=== PATIENT | female | born 1995 | race Two or more races ===

== ENCOUNTER 2022-03-08 11:02 | Emergency (ER) | payer MEDICAID, OTHER ==
[~2022-03-08] VITALS: Ht 162.6 cm; Wt 85.8 kg
[2022-03-08 11:50] VITALS: BP 122/71
[2022-03-08] MEDS ORDERED: ONDANSETRON HCL 4 MG/2 ML VIAL IV ONE (13:15)
[2022-03-08] MEDS ORDERED: KETOROLAC TROMETH 30 MG/ML 1ML VIAL IV ONE (13:15)
[2022-03-08] MEDS ORDERED: SODIUM CHLORIDE 0.9% 1,000 ML IVB ONE (13:15)
[2022-03-08 13:26] LABS: Urine Bacteria FEW /hpf (None Seen); Urine Blood 2+ /uL (Negative); Urine Mucus FEW (None Seen); Urine Specific Gravity 1.027 (1.001-1.035); Urine WBC 3 /hpf (0 - 5)
[2022-03-08 13:41] LABS: Basophils # (auto) 0 10 ^3/uL (0-0.2); Eosinophils # (auto) 0 10 ^3/uL (0-0.8); Monocytes # (auto) 0.3 10 ^3/uL (0-1.3)
[2022-03-08 13:43] LABS: Basophils % (auto) 0.5 % (0.0-2.0); Eosinophils % (auto) 0.3 % (0.0-7.0); Hemoglobin 13.2 g/dL (12.2-16.2); Lymphocytes # (auto) 2.5 10 ^3/uL (0.4-5.4); Mean Corpuscular Hgb Conc. 33.7 g/dL (32.0-36.0); Neutrophils % (auto) 63.2 % (37.0-80.0); Red Blood Cells 4.88 10^6/uL (4.0-5.20); Red Cell Distribution Width 16.5 % (11.8-14.3); White Blood Cell 7.9 10^3/uL (4.4-10.8)
[2022-03-08 14:04] LABS: Albumin 3.8 g/dL (3.4-5.0); Calcium 8.4 mg/dL (8.5-10.1); Magnesium 2.2 mg/dL (1.6-2.6); Potassium 4.5 mmol/L (3.5-5.1)
[2022-03-08 14:07] LABS: BUN/Creatinine Ratio 11.2; Bilirubin, Total 1.1 mg/dL (0.2-1.0)
[2022-03-08] MEDS ORDERED: AZITHROMYCIN 250 MG TAB PO ONE (15:00)
[2022-03-08] MEDS ORDERED: cefTRIAXone W LIDOCAINE 500 MG IM IM ONE (15:00)
[2022-03-08] MEDS ORDERED: ONDA-144 PO (15:05)
[2022-03-08] MEDS ORDERED: NITR-87 PO (15:07)
== END 2022-03-09 05:03 | disposition home or self-care (01) ==
LOC: ER 11:02
DX: N39.0 Urinary tract infection, site not specified (principal); N83.201 Unspecified ovarian cyst, right side; N89.8 Other specified noninflammatory disorders of vagina; F12.10 Cannabis abuse, uncomplicated; Z32.02 Encounter for pregnancy test, result negative
CPT/HCPCS: 36415; 76856; 80053; 81001; 81025; 83690; 83735; 84702; 85025; 99284; J0696; J7030

== ENCOUNTER 2022-07-04 12:09 | Emergency (ER) | payer MEDICAID ==
[~2022-07-04] VITALS: Ht 160 cm; Wt 98.8 kg
[~2022-07-04 12:09] MED LIST: NITR-87 PO; ONDA-144 PO
[2022-07-04 13:41] VITALS: BP 153/83
[2022-07-04] MEDS ORDERED: KETOROLAC TROMETH 30 MG/ML 1ML VIAL IM ONE (14:45)
[2022-07-04] MEDS ORDERED: ACETAMINOPHEN 500 MG TAB PO ONE (16:15)
[2022-07-04] MEDS ORDERED: IBUP600T28 PO (16:37)
[2022-07-04] MEDS ORDERED: CYCL-839 PO (16:37)
[2022-07-04] MEDS ORDERED: FLUC150T38 PO (16:37)
[2022-07-04] MEDS ORDERED: CEPH-510 PO (16:37)
[2022-07-04 17:57] LABS: Urine Bacteria NONE SEEN /hpf (None Seen); Urine Blood Negative /uL (Negative); Urine Hyaline Cast FEW /lpf (0 - 2); Urine Mucus FEW (None Seen); Urine Specific Gravity 1.028 (1.001-1.035); Urine WBC 2 /hpf (0 - 5)
== END 2022-07-04 16:38 | disposition home or self-care (01) ==
LOC: ER 12:09
DX: S83.91XA Sprain of unspecified site of right knee, initial encounter (principal); S39.012A Strain of muscle, fascia and tendon of lower back, initial encounter; N76.0 Acute vaginitis; F12.90 Cannabis use, unspecified, uncomplicated; V89.2XXA Person injured in unspecified motor-vehicle accident, traffic, initial encounter; Y93.89 Activity, other specified; Y92.89 Other specified places as the place of occurrence of the external cause; Y99.8 Other external cause status
CPT/HCPCS: 72100; 73562; 81001; 96372; 99284; J1885

== ENCOUNTER 2022-09-28 08:14 | Emergency (ER) | payer MEDICAID ==
[~2022-09-28] VITALS: Ht 160 cm; Wt 85.0 kg
[~2022-09-28 08:14] MED LIST changes: +CEPH-510 PO; +CYCL-839 PO; +FLUC150T38 PO; +IBUP1TAB5 PO
[2022-09-28 08:48] VITALS: BP 136/63
[2022-09-28 09:09] LABS: Urine Bacteria NONE SEEN /hpf (None Seen); Urine Blood 2+ /uL (Negative); Urine Mucus FEW (None Seen); Urine Specific Gravity 1.027 (1.001-1.035); Urine WBC 2 /hpf (0 - 5)
[2022-09-28] MEDS ORDERED: AZIT500T66 PO (09:29)
[2022-09-28] MEDS ORDERED: LIDO2SOL26 MT (09:29)
[2022-09-28] MEDS ORDERED: cefTRIAXone SOD 1,000 MG VL IM ONE (09:30)
== END 2022-09-28 09:43 | disposition home or self-care (01) ==
LOC: ER 08:14
DX: J03.90 Acute tonsillitis, unspecified (principal); M79.10 Myalgia, unspecified site; Z32.02 Encounter for pregnancy test, result negative
CPT/HCPCS: 81001; 81025; 96372; 99283; J0696

== ENCOUNTER 2023-02-27 19:11 | Emergency (ER) | payer MEDICAID ==
[~2023-02-27] VITALS: Ht 160 cm; Wt 95.0 kg
[~2023-02-27 19:11] MED LIST changes: +AZIT500T66 PO; +LIDO2SOL26 MT
[2023-02-27 20:30] LABS: Basophils # (auto) 0.1 10 ^3/uL (0-0.2); Basophils % (auto) 0.5 % (0.0-2.0); Eosinophils # (auto) 0.1 10 ^3/uL (0-0.8); Eosinophils % (auto) 0.4 % (0.0-7.0); Hematocrit 41.7 % (36.0-46.0); Hemoglobin 14.1 g/dL (12.2-16.2); Lymphocytes # (auto) 3.6 10 ^3/uL (0.4-5.4); Mean Corpuscular Hemoglobin 29.5 pg (28.0-32.0); Mean Corpuscular Hgb Conc. 33.9 g/dL (32.0-36.0); Monocytes # (auto) 0.9 10 ^3/uL (0-1.3); Monocytes % (auto) 5.9 % (0.0-12.0); Neutrophils # (auto) 9.8 10 ^3/uL (1.6-8.6); Neutrophils % (auto) 68.2 % (37.0-80.0); Red Cell Distribution Width 13.5 % (11.8-14.3); White Blood Cell 14.4 10^3/uL (4.4-10.8)
[2023-02-27 20:43] LABS: Alanine Aminotransferase 14 U/L (7-40); Albumin 4.4 g/dL (3.2-4.8); Alkaline Phosphatase 54 U/L (46-116); Anion Gap 8 (5-15); Aspartate Aminotransferase < 8 U/L (13-40); Bilirubin, Total 0.9 mg/dL (0.2-1.0); Blood Urea Nitrogen 8 mg/dL (9-23); Calcium 9.2 mg/dL (8.5-10.1); Carbon Dioxide 24 mmol/L (20-30); Chloride 109 mmol/L (98-107); Glucose 83 mg/dL (74-106); Potassium 3.8 mmol/L (3.5-5.1); Sodium 141 mmol/L (136-145); Total Protein 7.2 g/dL (5.7-8.2)
[2023-02-27 20:46] LABS: Urine Bacteria FEW /hpf (None Seen); Urine Blood 2+ /uL (Negative); Urine Clarity HAZY (Clear); Urine Color Yellow (Yellow); Urine Mucus MANY (None Seen); Urine Protein, UAD 2+ (Negative); Urine Specific Gravity 1.045 (1.001-1.035); Urine WBC 31 /hpf (0 - 5); Urine pH 5.5 (5.0-8.0)
[2023-02-27] MEDS ORDERED: AZITHROMYCIN 250 MG TAB PO ONE (23:00)
[2023-02-27] MEDS ORDERED: cefTRIAXone SOD 1,000 MG VL IM ONE (23:00)
[2023-02-27] MEDS ORDERED: HYDROcodone-ACET 5/325MG TAB PO ONE (23:00)
[2023-02-27] MEDS ORDERED: CIPR-173 PO (23:11)
[2023-02-27] MEDS ORDERED: METR-344 PO (23:11)
[2023-02-27 23:27] VITALS: BP 108/68; PULSE 85; RESP 17; TEMP 98.4; O2SAT 100
[2023-02-27 23:38] LABS: Vaginal Trichomonas Not Present
[2023-02-27 23:39] LABS: Vaginal Bacteria Few; Vaginal Clue Cells None Seen; Vaginal Epithelial Cells Few
[2023-03-01 07:07] LABS: RPR Non Reactive (Non Reactive)
== END 2023-02-27 23:41 | disposition home or self-care (01) ==
LOC: ER 19:11
DX: N39.0 Urinary tract infection, site not specified (principal); R10.2 Pelvic and perineal pain; N76.0 Acute vaginitis; I10 Essential (primary) hypertension; F41.9 Anxiety disorder, unspecified; F32.9 Major depressive disorder, single episode, unspecified; F15.90 Other stimulant use, unspecified, uncomplicated; Z79.899 Other long term (current) drug therapy
CPT/HCPCS: 36415; 76856; 80053; 81001; 84702; 85025; 86592; 87210; 87491; 87591; 96372; 99285; J0696

== ENCOUNTER 2023-03-10 11:49 | Emergency (ER) | payer MEDICAID ==
[~2023-03-10] VITALS: Ht 160 cm; Wt 94.0 kg
[~2023-03-10 11:49] MED LIST changes: +CIPR-173 PO; +METR-344 PO
[2023-03-10 12:19] VITALS: BP 131/76; PULSE 92; RESP 16; TEMP 97.8; O2SAT 96
[2023-03-10] MEDS ORDERED: KETOROLAC TROMETH 60MG/2ML VIAL IM ONE (12:30)
[2023-03-10 12:33] LABS: Urine Bacteria NONE SEEN /hpf (None Seen); Urine Blood Negative /uL (Negative); Urine Budding Yeast FEW /hpf (None Seen); Urine Clarity HAZY (Clear); Urine Color PINK (Yellow); Urine Mucus FEW (None Seen); Urine Protein, UAD 1+ (Negative); Urine Specific Gravity 1.023 (1.001-1.035); Urine Urobilinogen Normal (Negative); Urine WBC 2 /hpf (0 - 5)
[2023-03-10] MEDS ORDERED: IBUP-1456 PO (13:41)
[2023-03-10] MEDS ORDERED: BACDST PO (13:41)
== END 2023-03-10 13:46 | disposition home or self-care (01) ==
LOC: ER 11:49
DX: N39.0 Urinary tract infection, site not specified (principal); N83.291 Other ovarian cyst, right side; I10 Essential (primary) hypertension; F41.9 Anxiety disorder, unspecified; F32.9 Major depressive disorder, single episode, unspecified; F15.90 Other stimulant use, unspecified, uncomplicated; Z79.899 Other long term (current) drug therapy
CPT/HCPCS: 74176; 81001; 81025; 96372; 99285; J1885

== ENCOUNTER 2024-11-01 12:55 | Emergency (ER) | payer MEDICAID ==
[~2024-11-01] VITALS: Ht 175.3 cm; Wt 90.0 kg
[~2024-11-01 12:55] MED LIST changes: +BACDST PO; +IBUP-1456 PO
[2024-11-01] MEDS ORDERED: METR0.7511 VG (15:34)
--- NOTE | 2024-11-01 15:34 | ED.PDOC ---
History of Present Illness HPI Comments vaginal discharge. pt had bacterial vaginosis, and improved with treatment, but recurred with light white discharge. no odors Chief Complaint: Vaginal Discharge Time Seen by MD: 14:40 Primary Care Provider: NONE Allergies: Coded Allergies: NO KNOWN ALLERGIES (Unverified , 03/08/22) Home Meds Active Scripts Ibuprofen (Ibuprofen) 800 Mg Tab, 1 TAB PO TID, #30 TAB Prov:VINITA TAY 03/10/23 Sulfamethoxazole W/Trimethopri (Bactrim Ds Tablet) 1 Tab Tb, 1 TAB PO BID for 3 Days, #6 TAB Prov:VINITA TAY 03/10/23 Metronidazole (Flagyl) 500 Mg Tab, 1 TAB PO TID for 10 Days, #30 TAB Prov:CATHIE KHAN Q PUBLIC RELATIONS ANALYST 02/27/23 Ciprofloxacin Hcl (Cipro) 500 Mg Tab, 1 TAB PO BID for 10 Days, #20 TAB Prov:KHANMUMTAZALDA Q PUBLIC RELATIONS ANALYST 02/27/23 Lidocaine HCl (Mouth-Throat) (Lidocaine HCl Viscous) 2 % Holly, 2 % MT TID, #100 ML Prov:VINITA TAY 09/28/22 Azithromycin (Azithromycin) 500 Mg Tab, 1 TAB PO DAILY, #5 TAB Prov:VINITA TAY 09/28/22 Cyclobenzaprine Hcl (Cyclobenzaprine Hcl) 10 Mg Tab, 10 MG PO TID, #12 TAB 0 Refills Prov:IVET SERRA ASSOCIATE PRINCIPAL 07/04/22 Ibuprofen Micronized (Ibuprofen) 600 Mg Tab, 600 MG PO Q8HPRN PRN, #30 TAB 0 Refills Prov:IVET SERRA ASSOCIATE PRINCIPAL 07/04/22 Fluconazole (Diflucan) 150 Mg Tab, 1 TAB PO ONCE, #2 TAB Dose: 150 mg p.o. every 72 hours x2 doses Prov:IVET SERRA ASSOCIATE PRINCIPAL 07/04/22 Cephalexin ( Keflex 500) 500 Mg Cap, 1 CAP PO QID for 7 Days, #28 CAP 0 Refills Prov:IVET SERRA ASSOCIATE PRINCIPAL 07/04/22 Nitrofurantoin Monohydrate Mac (Macrobid) 100 Mg Cap, 100 MG PO BID for 5 Days, #10 CAP Prov:JOSIAH ALLEN DO 03/08/22 Ondansetron (Zofran) 4 Mg Tab, 4 MG PO BID PRN for 4 Days, #12 TAB 0 Refills Prov:JOSIAH ALLEN DO 03/08/22 Mode of Arrival: Ambulatory Severity: Mild Timing: Days Duration: Since onset Past Medical History PAST MEDICAL HISTORY: Anxiety, Depression, HTN Past Medical History (Other): baterioal vaginosis Surgical History: Denies all surgeries EXECUTIVE PASTRY CHEF History: No Pertinent EXECUTIVE PASTRY CHEF History Family History Family History: Reviewed,noncontributory to illness Social History Smoker: Non-Smoker Alcohol: Denies ETOH Use Drugs: Marijuana Lives In: Home Constitutional: denies: chills, diaphoresis, fatigue, fever, malaise, sweats, weakness, others Genitourinary: reports: vagina discharge Physical Exam General Appearance: No Apparent Distress, Normal HEENT: Normal ENT Inspection, Pharynx Normal, TMs Normal Neck: Full Range of Motion, Non-Tender, Normal, Normal Inspection Respiratory: Chest Non-Tender, Lungs Clear, No Accessory Muscle Use, No Respiratory Distress, Normal Breath Sounds Cardiovascular: No Edema, No JVD, No Murmur, No Gallop, Normal Peripheral Pulses, Regular Rate/Rhythm Breast Exam: Deferred Gastrointestinal: No Organomegaly, Non Tender, No Pulsatile Mass, Normal Bowel Sounds, Soft Genitalia: Deferred Pelvic: Deferred Rectal: Deferred Extremities: No calf tenderness, Normal capillary refill, Normal inspection, Normal range of motion, Non-tender, No pedal edema Musculoskeletal : Apperance: Normal Neurologic: Alert, foreign exchange position clerk II-XII nml as Tested, No Motor Deficits, Normal Affect, Normal Mood, No Sensory Deficits Cerebellar Function: Normal Reflexes: Normal Skin: Dry, Normal Color, Warm Lymphatic: No Adenopathy Was a procedure done? Was a procedure done?: No Differential Dx Considerations may include: candidiasis, bacterial vaginosis, trichomonas, gonorrhea, chlamydia, FB X-Ray, Labs, Meds, VS Vital Signs Date Time Temp Pulse Resp B/P (MAP) Pulse Ox O2 Delivery O2 Flow Rate FiO2 11/01/24 13:49 98.3 96 16 112/72 (85) 97 98.3 Time of 1ST Reevaluation: 15:32 Reevaluation 1ST: Unchanged Patient Education/Counseling: Diagnosis, Treatment, Prognosis, Need For Follow Up Family Education/Counseling: No Family Present Comments pt is certain that this is bacterial vaginosis and would like to have another prescription. i will have her try flagyl, and instructed her to follow up with her PCP SEPSIS Sepsis Screen Date sepsis recognized/suspect: Nov 01, 2024 Time Sepsis recognized/suspect: 1342 Recent Procedure: No On Antibiotic Therapy: No Respiratory Rate >20: No Heart Rate >90: No Temp<36 C (96.8 F) or >38.3 C: No SBP <90 or MAP <65 mmHG: No New Acute Mental Status Change: No Is the patient on CPAP, BIPAP,: No Vital Signs Date Time Temp Pulse Resp B/P (MAP) Pulse Ox O2 Delivery O2 Flow Rate FiO2 11/01/24 13:49 98.3 96 16 112/72 (85) 97 98.3 Departure 1 Departure Time of Disposition: 15:33 Impression: Primary Impression: Bacterial vaginosis Disposition: HOME / SELF CARE / HOMELESS Condition: Good e-Prescriptions Metronidazole Vaginal (Metronidazole Vaginal) 0.75 % Gel 1 APPLIC VG QPM, #70 GRAMS Prov: VALERIA TURCIOS MD 11/01/24 Discharged With: Self Critical Care Note Critical Care Time?: No Stability Stability form required: No VALERIA TURCIOS MD Nov 01, 2024 15:34
[2024-11-01 17:19] VITALS: BP 108/82; TEMP 98
[2024-11-01 17:26] VITALS: PULSE 89; RESP 20; O2SAT 96
== END 2024-11-01 17:31 | disposition home or self-care (01) ==
LOC: ER 12:55
DX: N76.0 Acute vaginitis (principal); B96.89 Other specified bacterial agents as the cause of diseases classified elsewhere; I10 Essential (primary) hypertension; F41.9 Anxiety disorder, unspecified; F32.A Depression, unspecified; Z79.899 Other long term (current) drug therapy; Z98.890 Other specified postprocedural states